=== PATIENT | female | born 1955 | race Caucasian/White ===

== ENCOUNTER 2017-06-09 10:13 | Emergency (ER) | payer OTHER ==
[~2017-06-09] VITALS: Ht 165.1 cm; Wt 68.0 kg
[~2017-06-09 10:13] MED LIST: LEVO.05 PO; PRAV40TA PO; PROZ20CA11 PO
[2017-06-09 10:19] VITALS: BP 148/70; PULSE 81; RESP 13; TEMP 98.5; O2SAT 97
[2017-06-09] MEDS ORDERED: SYNT88TA PO (10:41)
[2017-06-09] MEDS ORDERED: FLUO10TA PO (10:41)
[2017-06-09] MEDS ORDERED: PRAV40TA2 PO (10:41)
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
--- NOTE | 2017-06-09 11:23 | RADRPT ---
EXAM DATE/TIME: 06/09/2017 11:05 [facility] COMPARISON: No previous studies available for comparison. INDICATIONS : Cephalgia and neck pain for ten days. RADIATION DOSE: 56.35 CTDIvol (mGy) MEDICAL HISTORY : None SURGICAL HISTORY : Hysterectomy. ENCOUNTER: Initial ACUITY: 1 day PAIN SCALE: 7/10 LOCATION: Bilateral head TECHNIQUE: Multiple contiguous axial images were obtained of the head. Using automated exposure control and adj ustment of the mA and/or kV according to patient size, radiation dose was kept as low as reasonably a chievable to obtain optimal diagnostic quality images. DICOM format image data is available electro nically for review and comparison. FINDINGS: CEREBRUM: The ventricles are normal for age. No evidence of midline shift, mass lesion, hemorrhage or acute in farction. No extra-axial fluid collections are seen. POSTERIOR FOSSA: The cerebellum and brainstem are intact. The 4th ventricle is midline. The cerebellopontine angle i s unremarkable. EXTRACRANIAL: The visualized portion of the orbits is intact. SKULL: The calvaria is intact. No evidence of skull fracture. CONCLUSION: Normal examination. Philly Connor MD on June 09, 2017 at 11:21 Board Certified Radiologist. This report was verified electronically.
--- NOTE | 2017-06-09 11:32 | RADRPT ---
EXAM DATE/TIME: 06/09/2017 11:05 [facility] COMPARISON: CT BRAIN W/O CONTRAST, June 09, 2017, 11:05. INDICATIONS : Cephalgia and neck pain for ten days. RADIATION DOSE: 33.19 CTDIvol (mGy) MEDICAL HISTORY : None SURGICAL HISTORY : Hysterectomy. ENCOUNTER: Initial ACUITY: 1 day PAIN SCALE: 7/10 LOCATION: Bilateral neck TECHNIQUE: Volumetric scanning of the cervical spine was performed. Multiplanar reconstructions in the sagittal, coronal and oblique axial planes were performed. Using automated exposure control and adjustment o f the mA and/or kV according to patient size, radiation dose was kept as low as reasonably achievable to obtain optimal diagnostic quality images. DICOM format image data is available electronically f or review and comparison. FINDINGS: VERTEBRAE: Normal vertebral body height. ALIGNMENT: No evidence of subluxation. C2-C3: The bony spinal canal is normal in size. No evidence of disc bulge or herniation. The neural forami na are bilaterally patent. C3-C4: The bony spinal canal is normal in size. No evidence of disc bulge or herniation. The neural forami na are bilaterally patent. C4-C5: The bony spinal canal is normal in size. No evidence of disc bulge or herniation. The neural forami na are bilaterally patent. C5-C6: The bony spinal canal is normal in size. No evidence of disc bulge or herniation. The neural forami na are bilaterally patent.. moderate right-sided facet degenerative change. C6-C7: Severe disc space narrowing with productive changes and uncovertebral joint hypertrophy resulting in moderate bilateral neuroforaminal narrowing. C7-T1: The bony spinal canal is normal in size. No evidence of disc bulge or herniation. The neural forami na are bilaterally patent. CONCLUSION: No evidence of acute osseous abnormality. Degenerative changes seen at the level of C6/C7 resulting i n bilateral neuroforaminal narrowing.. Philly Connor MD on June 09, 2017 at 11:27 Board Certified Radiologist. This report was verified electronically.
== END 2017-06-09 12:08 | disposition home or self-care (01) ==
LOC: NEPD 10:13 → MERGE 10:13 → NEPD 12:08
DX: S06.0X0A Concussion without loss of consciousness, initial encounter (principal); M54.2 Cervicalgia; F32.9 Major depressive disorder, single episode, unspecified; E78.00 Pure hypercholesterolemia, unspecified; R41.0 Disorientation, unspecified; V49.59XA Passenger injured in collision with other motor vehicles in traffic accident, initial encounter; Y92.410 Unspecified street and highway as the place of occurrence of the external cause
CPT/HCPCS: 70450; 72125